=== PATIENT | female | born 1995 | race African-American/Black ===

== ENCOUNTER 2017-07-05 17:42 | Emergency (ER) | payer OTHER ==
[~2017-07-05] VITALS: Ht 162.6 cm; Wt 90.2 kg
[2017-07-05 18:21] LABS: APPEARANCE CLEAR ((CLEAR)); BILIRUBIN NEGATIVE; BLOOD NEGATIVE; COLOR STRAW ((YELLOW)); GLUCOSE (STRIP) NEGATIVE; KETONES NEGATIVE; LEUKOCYTES NEGATIVE; NITRITE NEGATIVE; PROTEIN (STRIP) NEGATIVE; SPECIFIC GRAVITY 1.011 (1.000-1.030); UCUL ADDED? NO; UROBILINOGEN 0.2 MG/DL (0.2-1.0)
[2017-07-05 18:30] LABS: HEMATOCRIT 36.9 % (36.0-46.0); HEMOGLOBIN 11.9 G/DL (11.9-15.5); MCH 26.4 PG (29.0-34.0); MCHC 32.2 G/DL (30.0-36.0); MCV 81.8 FL (83-99); RBC DIS.WIDTH-CV 12.5 % (11.8-14.6); RBC DIS.WIDTH-SD 37.2 % (39-53); RED BLOOD COUNT 4.51 M/uL (3.80-5.20); WHITE BLOOD COUNT 8.8 K/uL (4.1-10.2)
[2017-07-05 18:38] LABS: ALBUMIN 4.3 g/dL (3.2-4.8); CHLORIDE 103 mEq/L (99-109); POTASSIUM 4.3 mEq/L (3.7-5.4); SODIUM 138 mEq/L (136-147)
[2017-07-05 18:41] LABS: GLUCOSE 63 mg/dL (70-99); TOTAL PROTEIN 7.6 g/dL (6.4-8.3)
[2017-07-05 18:43] LABS: TOTAL BILIRUBIN 0.8 mg/dL (0.0-1.0)
[2017-07-05 18:44] LABS: ALKALINE PHOSPHATASE 87 IU/L (3-129); CREATININE 0.8 mg/dL (0.6-1.3)
[2017-07-05 18:45] LABS: UREA NITROGEN (BUN) 8 mg/dL (9-23)
[2017-07-05 18:46] LABS: AST (GOT) 15 IU/L (2-34)
[2017-07-05 18:47] LABS: ALT (GPT) 12 IU/L (3-49)
[2017-07-05 18:54] LABS: QUANTITATIVE HCG < 4.0 MIU/ML
[2017-07-05 18:55] LABS: GFR ESTIMATE (CALCULATED) > 59 mL/min/
[2017-07-05 19:28] LABS: PLAT.SUFFICIENCY ADEQUATE; PLATELET COUNT 281 K/uL (156-360)
[2017-07-06 00:01] VITALS: BP 110/62
== END 2017-07-06 00:14 | disposition home or self-care (01) ==
LOC: EME 17:42
DX: K59.00 Constipation, unspecified (principal); R10.32 Left lower quadrant pain; N92.6 Irregular menstruation, unspecified; J45.909 Unspecified asthma, uncomplicated; K58.9 Irritable bowel syndrome, unspecified
CPT/HCPCS: 74019; 76856; 80053; 81003; 84702; 85027; 99281; 99284

== ENCOUNTER 2017-10-07 21:08 | Emergency (ER) | payer OTHER ==
[~2017-10-07] VITALS: Ht 162.6 cm; Wt 91.3 kg
[2017-10-07] MEDS ORDERED: BENADRYL25 MG PO (22:39)
[2017-10-07 23:01] VITALS: BP 115/71
== END 2017-10-07 23:30 | disposition home or self-care (01) ==
LOC: EME 21:08
DX: L25.9 Unspecified contact dermatitis, unspecified cause (principal); Z91.018 Allergy to other foods
CPT/HCPCS: 99281; 99283; J1100